=== PATIENT | female | born 1960 | race Caucasian/White ===

== ENCOUNTER 2023-10-17 08:31 | Emergency (ER) | payer BC, SELFPAY ==
--- NOTE | ~2023-10-17 | XR_ITS ---
EXAMINATION: XR KNEE, LEFT CLINICAL INFORMATION: Left knee pain COMPARISON: None available. TECHNIQUE: Four views of the left knee. FINDINGS: BONES: Bony structures are intact. There is no focal bone destruction or periosteal reaction seen. JOINTS: Alignment of joints is normal. SOFT TISSUE: Soft tissue is normal. No radiopaque foreign body or abnormal air collection is seen. XR/XR knee LT 3V IMPRESSION: 1. Normal x-rays of left knee. No fracture or dislocation or signs of osteomyelitis are found.
[2023-10-17 08:53] VITALS: BP 156/93; PULSE 78; RESP 16; TEMP 36.7; O2SAT 97; BMI 33.3
--- NOTE | 2023-10-17 11:30 | ED.GENADULT ---
[facility] - General Adult General Chief complaint: Extremity Injury, Lower Stated complaint: l knee pain Time Seen by Provider: 10/17/23 11:23 Source: patient Mode of arrival: ambulatory Limitations: no limitations History of Present Illness ED Provider: damon [facility] narrative: Patient is a 63-year-old female presenting emergency department with complaint of left knee pain since yesterday. States that she noted the pain after she was leaving the grocery store but denies any known injury or trauma. She denies any fall. States she took Tylenol and ibuprofen last night with little relief of pain. Unable to bear weight on left leg. Denies history of prior injuries or surgery to left knee but does report history of meniscus tear to right knee with surgical repair in the past. MD complaint: Left knee pain Onset (ago): hour(s) Severity: severe Quality: aching Pain Consistency: constant Relieving factors: rest Exacerbating factors: movement Associated symptoms: denies other symptoms Treatments prior to arrival: NSAID Related Data Previous Rx's ?Medication ?Instructions ?Recorded ibuprofen 600 mg tablet 600 mg PO Q6H PRN pain #20 tabs 10/17/23 lidocaine 5 % topical patch 1 patch topical DAILY #15 ea 10/17/23 oxycodone 5 mg tablet 5 mg PO Q8H PRN severe pain (scale 10/17/23 score 7-10) #6 tabs Allergies Allergy/AdvReac Type Severity Reaction Status Date / Time No Known Allergies Allergy Verified 10/17/23 08:54 Review of Systems Review of Systems: Yes all other systems are reviewed and are negative Constitutional: Constitutional: Reports as per [facility] Social History Social History Advance Directives: No Advance Directives Information Provided: Yes Do you have a plan to hurt others: No Plan Physical Exam ED Vital Signs: Vital Signs - 24 hr 10/17/23 08:53 Temperature 98.1 F Pulse Rate 78 Respiratory Rate 16 Blood Pressure 156/93 H Pulse Oximetry 97 Oxygen Delivery Method Room Air BMI result Body Mass Index 33.3 Vital signs have been reviewed and appear to be correct. Blood pressure elevated. Heart rate normal. Respiratory rate normal. Temperature normal. Oxygen saturation normal. Const General: cooperative, healthy appearing and no acute distress Orientation/consciousness: oriented to person, oriented to place, oriented to time and patient oriented x3 Limitations: no limitations HENMT Head: Yes normocephalic and Yes atraumatic Ears: external ears normal General nose exam: Normal external nose present Face and sinus: Yes face symmetric Mouth: oropharynx normal and moist mucous membranes Throat: Yes uvula midline Eyes Pupils: Equal, round and reactive pupils present Neck Neck: Yes normal visual inspection and Yes supple Resp Effort & Inspection: normal respiratory effort and able to speak in complete sentences Auscultation: clear to auscultation bilaterally Cardio Rate: regular rate Rhythm: regular rhythm Heart sounds: S1 normal heart sound present and S2 normal heart sound present GI Palpation (GI): Soft to palpation and nontender Auscultation: normoactive bowel sounds General: Yes no CVA tenderness Back/Spine/Pelvis Back: no CVA tenderness Skin General skin exam: elasticity normal and turgor normal Neuro General: oriented to person, oriented to place, oriented to time, patient oriented x3, moves all extremities, no focal motor deficits and CN's II-XI intact bilaterally Cranial nerves: Yes Equal, round and reactive pupils present Cognition (Neuro): normal cognition Extrem General: Yes full ROM, Yes no pedal edema and Yes no calf tenderness Left lower extremity: knee Details: normal to inspection, tenderness Location: of the medial joint line, normal ROM and knee ligament exam normal; no swelling Psych Mental Status: mental status grossly normal Affect: normal affect Thought process: Normal thought process present Medications Administered Discontinued Medications Generic Name Dose Route Start Last Admin Trade Name Freq PRN Reason Stop Dose Admin Oxycodone HCl 5 mg 10/17/23 12:22 10/17/23 12:34 Oxycodone Hcl Immed Release 5 Mg Tablet PO 10/17/23 12:23 5 mg ONCE ONE Administration Medical Decision Making Medical Decision Making [facility] Narrative: Patient is a 63-year-old female presenting emergency department with complaint of left knee pain since yesterday. On exam patient is awake, A+Ox3, VS WNL, afebrile, normal neurological exam without focal deficits, physical exam findings as above. Given reported symptoms and physical exam findings, initial differential includes left knee strain, sprain, ligamentous injury, meniscus tear. Unlikely fracture. X-ray notable for no acute fracture/dislocation. My interpretation is in agreement with the radiologist's interpretation. Results discussed with patient and all questions answered. Patient placed in knee immobilizer and provided with crutches and crutch teaching. Will refer patient to orthopedic for further evaluation and management of her symptoms. Advised patient to keep leg elevated while at rest, apply ice intermittently, use anti-inflammatory medication. Return precautions discussed. Patient verbalized understanding of and agreement with plan. Differential Diagnosis Differential Diagnoses: The differential diagnosis associated with the presentation includes As per MDM. Independent Interpretation I performed an independent interpretation of an: Plain X-Ray Interpretation: No acute fracture dislocation left knee Radiology Impression Discussion of test interpretation with radiology: I have reviewed the radiologist's reading. Radiologist Impression: XR/XR knee LT 3V IMPRESSION: 1. Normal x-rays of left knee. No fracture or dislocation or signs of osteomyelitis are found. External Record Review External record reviewed: Inpatient record, Office record and Outpatient record Discharge Plan Discharge Clinical Impression: Strain of left knee Patient Disposition: Home, Self-Care Instructions: Crutch Instructions (ED), Knee Pain (ED), Knee Immobilizer (ED) Additional Instructions: You have been evaluated in the emergency department today for left knee pain. Your evaluation did not find evidence of medical conditions requiring emergent intervention at this time. We have provided you with a knee immobilizer and crutches for you to use while your knee heals. Please rest, ice, and elevate your leg, and resume normal activities as tolerated. We recommend you take 600mg ibuprofen every 6 hours or 650mg Tylenol every 6 hours as needed for pain. If needed you can alternate these medications as they take 1 medication every 3 hours. For instance at noon take ibuprofen, then at 3:00 p.m. take Tylenol, then at 6:00 p.m. take ibuprofen. Please schedule an appointment for follow-up with your primary care provider this week. Return to the emergency department if you experience worsening pain, numbness, tingling, change of color in your leg, or any other concerning symptoms. Call the orthopedics office to schedule and appointment, they will not call you. Prescriptions: New ibuprofen 600 mg tablet 600 mg PO Q6H PRN (Reason: pain) Qty: 20 0RF lidocaine 5 % adhesive patch,medicated 1 patch topical DAILY Qty: 15 0RF Rx Instructions: leave on most painful area for up to 12 hrs oxycodone 5 mg tablet 5 mg PO Q8H PRN (Reason: severe pain (scale score 7-10)) Qty: 6 0RF Rx Instructions: Partial Fill upon patient request. Referrals: [facility] [place] [facility] [Provider Group] Print Language: Amharic
--- OUTSIDE RECORDS SUMMARY | 2023-10-17 11:41 | XMS_ITS | Continuity of Care Document ---
Author Organization [facility] Zaid Agustin lt Address [address] [place] [address]- Care Team Providers Care Assistant Merchandise Manager Name Role Phone Deion DE LA PAZ, Dian Houston Primary Care Physician [phone] Encounter [facility] [place] Date(s): 11/09/22 - 12/09/22 [facility] Adult [address] [place] [address]- Allergies, Adverse Reactions, Alerts Substance Reaction Severity Status Vicodin drowsy gi upset Active Immunizations Given and Recorded Vaccine Date Status Refusal Reason tetanus/diphtheria/pertussis, acel(Tdap) 05/05/22 Given tetanus/diphtheria/pertussis, acel(Tdap) 01/10/12 Given SARS-CoV-2 (COVID-19) mRNA-1273 vaccine 06/18/20 R ecorded SARS-CoV-2 (COVID-19) mRNA-1273 vaccine 05/21/20 R ecorded Typhoid Vaccine, Inactivated 01/10/12 Given Hepatitis A Vaccine (oldterm) 1 01/10/12 Given Poliovirus Vaccine, Inactivated 01/10/12 Given Pneumococcal Vaccine (oldterm) 11/28/08 Given tetanus-diphtheria toxoids (Td) 2 11/04/00 Given 1Admin Note: hep A #1 2Admin Note: historical data Medications lidocaine 5% topical film 1 patch, Topically, Daily, PRN Pain , Mild, for 30 days, remove after 12 hours, # 30 patch, 2 Refills, Acute 02/02/23 8:28:00 EDT, 11/04/22 8:28:00 EDT, Film, [facility], Partial fill upon patient request if the prescription is for a schedule... Start Date: 11/04/22 Stop Date: 02/02/23 Status: Ordered metFORMIN 500 mg oral tablet, extended release 1 tablet = 500 mg, By Mouth, Daily, # 90 tablet, 1 Refills, Maintenance, 08/14/22 18:05:00 EDT, ER Tablet, [facility], Partial fill upon patient request if the prescription is for a schedule II opioid drug., 158, cm, 05/05/22 7:... Start Date: 08/14/22 Status: Ordered NuLYTELY with Flavor Packs oral powder for reconstitution See Instructions, split prep method. drink one half the night before procedure at 5pm. drink secondhalf six hours prior to procedure., # 4,000 mL, 0 Refills, Maintenance, 11/14/22 17:00:00 EDT, [facility], test date, split prep method. drink... Start Date: 11/14/22 Status: Ordered pravastatin 20 mg oral tablet 20 mg, 1, tablet, By Mouth, Daily, replace crestor, # 30 tablet, Refills 1, Tot. Refills 1, Maintenance, 05/05/22 7:58:00 EST, Route to Pharmacy Electronically, [facility], Partial fill uponpatient request if the prescription is for a schedu... Start Date: 05/05/22 Status: Ordered Problem List Condition Confirmation Course Effective Dates Status Health Status Informant Cigarette smoker Confirmed Active History of pulmonary embolism Confirmed Active Hypercholesteremia ASCVD risk 6.3% as of 09/21/17 Confirmed Active Obese class I Confirmed Active Obesity Confirmed Active Colon polyps - 2019, 3 SSA, 1 tubular adenoma, colo due 2022 Confirmed Active Pulmonary nodule - CT due November 2013 1 Confirmed 11/19/12 Active Type II diabetes mellitus Confirmed Active Varicose veins Confirmed Active 13 mm nodule right lower lobe. Per Fleischner criteria, if the patient is at low risk for malignancy, no followup is recommended. If the patient is at high risk of malignancy, recommend CT of the chest in 12 months. Social History Social History Type Response Smoking Status Current every day lloyd andrade entered on: 01/24/18 Sex Patient Care team information Care Team Personnel Name: Deion DE LA PAZ, Dian Houston Position: S PCO Associate Professional Member Role: PCP Address: Address: [address] [place] [phone]- Care Team Related Persons Name: LUISA HUNT Address: home [address] [place] [address]
--- OUTSIDE RECORDS SUMMARY | 2023-10-17 11:41 | XMS_ITS | Continuity of Care Document ---
Author Organization [facility] ter Address [address] [place] [id number]- Care Team Providers Care Final Armature Tester Name Role Phone Gene Sesay MD Primary Care Physician Encounter [facility] [place] Date(s): 07/11/19 - 10/18/[address] [address]- [facility] Attending Physician: Stefano Chawla MD Admitting Physician: Stefano Chawla MD Allergies, Adverse Reactions, Alerts Substance Reaction Severity Status Vicodin gi upset Active Immunizations Given and Recorded Vaccine Date Status Refusal Reason Typhoid Vaccine, Inactivated 01/10/12 Given Hepatitis A Vaccine (oldterm) 1 01/10/12 Given tetanus/diphtheria/pertussis, acel(Tdap) 01/10/12 Given Poliovirus Vaccine, Inactivated 01/10/12 Given Pneumococcal Vaccine (oldterm) 11/28/08 Given tetanus-diphtheria toxoids (Td) 2 11/04/00 Given Not Given Vaccine Date Status Refusal Reason Influenza Virus Vaccine (oldterm) 06/15/19 Not Giv en Patient Refuses Influenza Virus Vaccine (oldterm) 06/08/19 Not Giv en Parent Or Guardian Refuses 1Admin Note: hep A #1 2Admin Note: historical data Medications ibuprofen 600 mg oral tablet 600 mg, 1, tablet, By Mouth, Every 6 hours, PRN, Take with food, # 20 tablet, Refills 0, Tot. Refills 0, Maintenance, for pain, 06/08/19 16:08:00 EST, Route to Pharmacy Electronically, [facility], 158, cm, 06/08/19 15:52:00 EST, Height, 79.2,... Start Date: 06/08/19 Status: Ordered NuLYTELY with Flavor Packs oral powder for reconstitution 240 mL, By Mouth, Every 10 minutes, # 4,000 mL, 0 Refills, Maintenance, 07/11/19 10:01:00 EDT, REC Powder, [facility], test date 02/22/19, 240 mL By Mouth Every 10 minutes, 158, cm, 06/15/19 10:34:00 EST, Height, 79.2, kg, 05/27/18 18:27:00 E... Start Date: 07/11/19 Status: Ordered Tennis elbow strap Tennis elbow strap, See Instructions, # 1 each, Refills 0, Tot. Refills 0, Maintenance, Use as directed on the right forearm DX: Lateral epicondylitis, 06/15/19 11:00:00 EST, Supply Start Date: 06/15/19 Status: Ordered Problem List Condition Effective Dates Status Health Status Inform ant Anxiety depression(Confirmed) 04/03/08 Active Arthritis of hand(Confirmed) Active Cigarette smoker(Confirmed) Active Fasting hyperglycemia(Confirmed) Active Hypercholesteremia ASCVD ris k 6.3% as of 09/21/17(Confirmed) Active Obesity(Confirmed) Active Pulmonary embolism(Confirmed) 1 Active Pulmonary nodule - CT due [place] 2013(Confirmed) 2 11/19/12 Active Travel vaccinations(Confirmed) Active Varicose veins(Confirmed) Active 1June 2006 23 mm nodule right lower lobe. Per Fleischner criteria, if the patient is at low risk for malignancy, no followup is recommended. If the patient is at high risk of malignancy, recommend CT of the chest in 12 months. Social History Social History Type Response Smoking Status Current every day lloyd andrade entered on: 01/24/18 Sex
--- OUTSIDE RECORDS SUMMARY | 2023-10-17 11:41 | XMS_ITS | Continuity of Care Document ---
Author Organization [facility] Zaid Agustin lt Address [address] [place] [address]- Care Team Providers Care Tierce Filler Name Role Phone Deion DE LA PAZ, Dian Houston Primary Care Physician Encounter [facility] [place] Date(s): 11/04/22 - 11/11/[facility] [address] [place] [address]- Encounter Diagnosis Annual physical exam(Discharge Diagnosis) - 11/04/22 Hypercholesteremia ASCVD risk 6.3% as of 09/21/17(Discharge Diagnosis) - 11/04/22 Type II diabetes mellitus(Discharge Diagnosis) - 11/04/22 Attending Physician: Deion DE LA PAZ, Dian Houston Referring Physician: Álvaro Dee MD Allergies, Adverse Reactions, Alerts Substance Reaction [...] 02/02/23 8:28:00 EDT, 11/04/22 8:28:00 EDT, Film, [facility], Partial fill upon patient request if the prescription is for a schedule... Start Date: 11/04/22 Stop Date: 02/02/23 Status: Ordered metFORMIN 500 mg oral tablet, extended release 1 tablet = 500 mg, By Mouth, Daily, # 90 tablet, 1 Refills, Maintenance, 08/14/22 18:05:00 EDT, ER Tablet, [facility], Partial fill upon patient request if the prescription is for a schedule II opioid drug., 158, cm, 05/05/22 7:... Start Date: 08/14/22 Status: Ordered NuLYTELY with Flavor Packs oral powder for reconstitution See Instructions, split prep method. drink one half the night before procedure at 5pm. drink secondhalf six hours prior to procedure., # 4,000 mL, 0 Refills, Maintenance, 11/14/22 17:00:00 EDT, [facility], test date, split prep method. drink... Start Date: 11/14/22 Status: Ordered pravastatin 20 mg oral tablet 20 mg, 1, tablet, By Mouth, Daily, replace crestor, # 30 tablet, Refills 1, Tot. Refills 1, Maintenance, 05/05/22 7:58:00 EST, Route to Pharmacy Electronically, [facility], Partial fill uponpatient request [...] CT of the chest in 12 months. Diagnosis Diagnosis Type Effective Dates Health Status Clinical Service Informant Annual physical exam Discharge Diagnosis 11/04/22 Hypercholesteremia ASCVD risk 6.3% as of 09/21/17 Discharge Diagnosis 11/04/22 Type II diabetes mellitus Discharge Diagnosis 11/04/22 Vital Signs Most recent to oldest [Reference Range]: 1 Height 158 cm (11/04/22 8:01 AM) Weight 81.3 kg (11/04/22 8:01 AM) Oxygen Saturation [94-100 %] 97 % (11/04/22 8:01 AM) Pulse Rate [55-90 bpm] 69 bpm (11/04/22 8:01 AM) Body Mass Index [18.5-24.99 kg/m2] 32.57 kg/m2 *>HHI* (11/04/22 8:01 AM) Blood Pressure [90-138/55-84 mm Hg] 123/ 70mm Hg (11/04/22 8:01 AM) Blood pressure sites Arm, right (11/04/22 8:01 AM) Weight Obtained Via Standing scale (11/04/22 8:01 AM) Social History Social History Type Response Smoking Status Current every day lloyd andrade entered on: 01/24/18 Sex Note * Latrice Good: PERFORM, SIGN, VERIFY Event Display: Patient Education/Instruction Authored Date: [id number] [facility] *BMP So Zaid Matthews Clinical Summary Name LUIS HUNT Age 62 Years 1960 PCP Dian Albarran NP PCP Visit Date 11/04/2022 07:52:00 Additional Instructions: Scheduled Appointments?? Future Appointments ?*[facility] ?Phone:??--?Fax:??-- ?Appt. Date:??11/04/2022?3:00 PM ?Scheduled Provider:??Erlinda Calderon [facility] ?Phone:??--?Fax:??-- ?Appt. Date:??11/15/2022?10:00 AM ?Scheduled Provider:??Jose Haider DO Follow-Up Instructions ?? With: Address: When: Deion DE LA PAZ, Dian Houston [address] [place] [id number] In 6 months Diagnosis Encounter for general adult medical examination without abnormal findings; Pure hypercholesterolemia, unspecified; Type 2 diabetes mellitus without complications Medications: Please continue your medications until treatment is completed or stopped by your provider. Discuss any questions related to medications with your provider. New Medications [facility], [address], [place] [id number], [phone] Lidocaine Topical (lidocaine 5% topical film) 1 patch(es) Topically Daily as needed Pain , Mild for30 Days. remove after 12 hours. Refills: 2. Next Dose: Medications to Continue with No Changes These medications were not printed or sent to your pharmacy Metformin (metFORMIN 500 mg oral tablet, extended release) 1 tab(s) Oral Daily. Refills: 1. Next Dose: PEG Electrolyte Solution (NuLYTELY with Flavor Packs oral powder for reconstitution) split prep method. drink one half the night before procedure at 5pm. drink second half six hours prior to procedure.. Refills: 0. Next Dose: Pravastatin (pravastatin 20 mg oral tablet) 1 tab(s) Oral Daily. replace crestor. Refills: 1. Next Dose: No Longer Take the Following Medications Rosuvastatin (rosuvastatin 5 mg oral tablet) 1 tab(s) Oral Daily at Bedtime. Refills: 2. Allergy Info:?? Vicodin Medications Given This Visit Future Orders ?Comprehensive Metabolic Panel? Order Date:11/04/22?- Complete on or after?11/04/22 ?Lipid Panel? Order Date:11/04/22?- Complete on or after?11/04/22 ?Hemoglobin A1C (Monitoring)? Order Date:11/04/22?- Complete on or after?11/04/22 ?Microalbumin Urine? Order Date:11/04/22?- Complete on or after?11/04/22 Vital Signs Height 158 cm Weight 81.3 kg BMI 32.57 kg/m2 Blood Pressure 123 mm Hg/70 mm Hg Temperature Pulse Rate 69 bpm Respiratory Rate 02 Sat Mode of Delivery 97 %/ You can now view a summary of your hospital visit from the comfort of your home through a free online portal called [employer]. [employer] is a website that allows you to securely view your medical information including discharge summary, medications and follow-up visits. ??You can alsosend a secure electronic message to your doctor???s office to request appointments, renew medications or just ask a question. You can enroll at [email or web address] or register during your next office visit. Disclaimer:?? The information provided is of a general nature and is intended to be used in conjunction with the recommendations and advice of your health care practitioner. ??Every effort has been made to ensure that the information provided is accurate and complete at the time it is provided to you however, as your needs change, or, as new ??information becomes available, different or additional instructions may be required. If you have questions, please consult with your primary care provider or pharmacist, as appropriate. ??This information is not intended to serve as substitution for assessment and evaluation by a qualified health care provider. If you do not have a primary care provider, you may find a [facility] provider by calling [facility] at [phone]. For information about the plan of care including goals and instructions for your diagnosis, please see the patient education orders section of this document. Patient Education Materials?? The content of this educational material or handout may have been modified, supplemented, or adapted from its original content and format to support your individualized medical care. Patient Care team information Care Team Personnel Name: Deion DE LA PAZ, Dian Houston Position: [facility] PCO Associate Professional Member Role: PCP Address: Address: [address] [place] [address]- Care Team Related Persons Name: LUISA HUNT Address: home [address] [place] [address]
--- OUTSIDE RECORDS SUMMARY | 2023-10-17 11:41 | XMS_ITS | Continuity of Care Document ---
Author Organization [facility] Zaid Agustin lt Address [address] [place] [address]- Care Team Providers Care Log Sorter Name Role Phone Deion DE LA PAZ, Dian Houston Primary Care Physician [phone] Encounter [facility] Date(s): 06/23/23 - 07/23/23 [facility] Adult [address] [place] [address]- Allergies, Adverse Reactions, Alerts Substance Reaction Severity [...] A #1 2Admin Note: historical data Medications Ozempic 2 mg/3 mL (0.25 mg or 0.5 mg dose) subcutaneous solution See Instructions, INJECT 0.25MG UNDER THE SKIN EVERY WEEK. ROTATE INJECTION SITES, # 3 mL, 0 Refills, Maintenance, 06/24/23 12:52:00 EST, [facility], 154.9, cm, 05/09/23 9:03:00 EST, Height,81.1, kg, 11/15/22 9:33:00 EDT, Dry Weight Start Date: 06/24/23 Status: Ordered pravastatin 20 mg oral tablet 20 mg, 1, tablet, By Mouth, Daily, replace crestor, # 30 tablet, Refills 1, Tot. Refills 1, Maintenance, 05/05/22 7:58:00 EST, Route to Pharmacy Electronically, [facility], Partial fill uponpatient request if the prescription is for a schedu... Start Date: 05/05/22 Status: Ordered Problem List Condition Confirmation Course Effective Dates Status Health Status Informant Cigarette smoker Confirmed Active History of pulmonary embolism Confirmed Active Hypercholesteremia ASCVD risk 6.3% as of 09/21/17 Confirmed Active Obesity Confirmed Active Colon polyps - 2019, 3 SSA, 1 tubular adenoma, colo due 2022 Confirmed Active Pulmonary nodule - CT due November 2013 1 Confirmed 11/19/12 Active Severe obesity (BMI 35.0-39.9) with comorbidity Confirmed Active Type II diabetes mellitus Confirmed Active Varicose veins Confirmed Active 13 mm nodule right lower lobe. Per Fleischner criteria, if the patient is at low risk for malignancy, no followup is recommended. If the patient is at high risk of malignancy, recommend CT of the chest in 12 months. Social History Social History Type Response Smoking Status Current every day lloyd [email or web address] entered on: 01/24/18 Sex Patient Care team information Care Team Personnel Name: Dian Albarran NP Position: S PCO Associate Professional Member Role: PCP Address: Address: [address] [place] [address]- Care Team Related Persons Name: LUISA HUNT Address: home [address] [place] [id number]
--- OUTSIDE RECORDS SUMMARY | 2023-10-17 11:41 | XMS_ITS | Continuity of Care Document ---
Author Organization [facility] Address [address] [place] [address]- Care Team Providers Care Behavioral Services Tech Name Role Phone Gene Sesay MD Primary Care Physician [phone] Encounter 03/19/21 - 03/26/21 [facility] [address], [address] [place] [address]- Attending Physician: Gene Sesay MD Admitting Physician: Gene Sesay MD Referring Physician: Gnee Sesay MD Allergies, Adverse Reactions, Alerts Substance Reaction Severity Status Vicodin drowsy gi upset Active Immunizations Given and Recorded Vaccine Date Status Refusal Reason SARS-CoV-2 (COVID-19) mRNA-1273 vaccine 06/18/20 R ecorded [...] A #1 2Admin Note: historical data Medications Readi-Cat 2 2.1% oral suspension See Instructions, 1 bottle 6 hours prior to appointment, 1 bottle 90 minutes prior to appointment, # 900 mL, 0 Refills, Maintenance, 01/08/21 13:22:00 EDT, [facility], Partial fill upon patient request if the prescription is for a schedule II... Start Date: 01/08/21 Status: Ordered Tennis elbow strap Tennis elbow [...] 6.3% as of 09/21/17(Confirmed) Active Obesity(Confirmed) Active Colon polyps - 2019, 3 SSA, 1 tubular adenoma, colo due 2022(Confirmed) Active Pulmonary embolism(Confirmed) 1 Active Pulmonary nodule [...]
--- OUTSIDE RECORDS SUMMARY | 2023-10-17 11:41 | XMS_ITS | Continuity of Care Document ---
Author Organization [facility] Zaid Agustin lt Address [address] [place] [address]- Care Team Providers Care Gas Worker Name Role Phone Lázaro VILLARREAL, Gene Hi Primary Care Physician [facility] Date(s): 01/08/21 - 02/07/21 [facility] Adult [address] [place] [address]- Attending Physician: Admtr, Ar8 Allergies, Adverse Reactions, Alerts Substance Reaction Severity [...] mL, 0 Refills, Maintenance, 01/08/21 13:22:00 EDT, [facility], Partial fill [...] CT of the chest in 12 months. Vital Signs Most recent to oldest [Reference Range]: 1 Height 151.00 cm (09/18/08 11:51 AM) Weight 71.000 kg (09/18/08 11:51 AM) Pulse Rate [55-90 bpm] 60 bpm (09/18/08 11:51 AM) Body Mass Index [18.50-24.99] 31.14 *>HHI* (09/18/08 11:51 AM) Blood Pressure [90-138/55-84 mm Hg] 112/ 78mm Hg (09/18/08 11:51 AM) Respiratory Rate [16-30 br/min] 12 br/mi n *L* (09/18/08 11:51 AM) Blood pressure sites Arm, left (09/18/08 11:51 AM) Social History Social History Type Response Smoking Status Current every day lloyd andrade entered on: 01/24/18 Sex
--- OUTSIDE RECORDS SUMMARY | 2023-10-17 11:41 | XMS_ITS | Continuity of Care Document ---
Author Organization [facility] Dewey Mar Agustin lt Address [address] [place] [address]- Care Team Providers Care Flare Man Name Role Phone Deion DE LA PAZ, Dian Houston Primary Care Physician Encounter [facility] Date(s): 05/05/22 - 05/12/22 [facility] Adult [address] [place] [address]- Encounter Diagnosis Type II diabetes mellitus(Discharge Diagnosis) - 05/05/22 Hypercholesteremia ASCVD risk 6.3% as of 09/21/17(Discharge Diagnosis) - 05/05/22 Cigarette smoker(Discharge Diagnosis) - 05/05/22 Attending Physician: Deion DE LA PAZ, Dian [...] A #1 2Admin Note: historical data Medications metFORMIN 500 mg oral tablet, extended release 1 tablet = 500 mg, By Mouth, Daily, # 90 tablet, 3 Refills, Maintenance, 10/02/21 10:05:00 EDT, ER Tablet, [facility], Partial fill upon patient request if the prescription is for a schedule II opioid drug., 158, cm, 09/10/21 9:... Start Date: 10/02/21 Status: Ordered pravastatin 20 mg oral tablet 20 mg, 1, tablet, By Mouth, Daily, replace crestor, # 30 tablet, Refills 1, Tot. Refills 1, Maintenance, 05/05/22 7:58:00 EST, Route to Pharmacy Electronically, [facility], Partial fill uponpatient request [...] Effective Dates Health Status Clinical Service Informant Type II diabetes mellitus Discharge Diagnosis 05/05/22 Hypercholesteremia ASCVD risk 6.3% as of 09/21/17 Discharge Diagnosis 05/05/22 Cigarette smoker Discharge Diagnosis 05/05/22 Vital Signs Most recent to oldest [Reference Range]: 1 Height 158 cm (05/05/22 7:49 AM) Weight 80.9 kg (05/05/22 7:49 AM) Oxygen Saturation [94-100 %] 99 % (05/05/22 7:49 AM) Pulse Rate [55-90 bpm] 77 bpm (05/05/22 7:49 AM) Body Mass Index [18.5-24.99 kg/m2] 32.41 kg/m2 *>HHI* (05/05/22 7:49 AM) Blood Pressure [90-138/55-84 mm Hg] 127/ 80mm Hg (05/05/22 7:49 AM) Blood pressure sites Arm, left (05/05/22 7:49 AM) Weight Obtained Via Standing scale (05/05/22 7:49 AM) Social History Social History Type Response Smoking Status Current every day lloyd andrade entered on: 01/24/18 Sex Note * Latrice Good: PERFORM, SIGN, VERIFY Event Display: Patient Education/Instruction Authored Date: [id number] [facility] *[facility] Clinical Summary Name LUIS HUNT Age 62 Years 1960 PCP Deion DE LA PAZ, Dian Houston PCP Visit Date 05/05/2022 07:43:00 Additional Instructions: Scheduled Appointments?? Future Appointments ?[facility] ?[address]??[place],??[place],??[address] ?Phone:??[phone]?Fax:??-- ?Appt. Date:??05/12/2022?11:15 AM ?Scheduled Provider:??[facility] M[facility] 1 Follow-Up Instructions ?? With: Address: When: Deion DE LA PAZ, Dian Houston [address] [facility] Adult Medicine [place], [place] [id number] In 6 months Comments: cpe Diagnosis Type 2 diabetes mellitus without complications; Pure hypercholesterolemia, unspecified Medications: Please continue your medications until treatment is completed or stopped by your provider. Discuss any questions related to medications with your provider. New Medications [facility], [address] [place], [place] [id number], [phone] Pravastatin (pravastatin 20 mg oral tablet) 1 tab(s) Oral Daily. replace crestor. Refills: 1. Next Dose: Medications to Continue with No Changes These medications were not printed or sent to your pharmacy Metformin (metFORMIN 500 mg oral tablet, extended release) 1 tab(s) Oral Daily. Refills: 3. Next Dose: No Longer Take the Following Medications Rosuvastatin (Crestor 5 mg oral tablet) 1 tab(s) Oral Daily. take at bedtime. Refills: 2. Allergy Info:?? Vicodin Medications Given This Visit Medication Dose Route tetanus/diphtheria/pertussis, acel(Tdap) ((Tdap) diphtheria/pertussis, acel/tetanus vacc) 0.5 mL Intramuscular Future Orders ?Hemoglobin A1C (Monitoring)? Order Date:05/05/22?- Complete on or after?05/05/22 ?Comprehensive Metabolic Panel? Order Date:05/05/22?- Complete on or after?05/05/22 Vital Signs Height 158 cm Weight 80.9 kg BMI 32.41 kg/m2 Blood Pressure 127 mm Hg/80 mm Hg Temperature Pulse Rate 77 bpm Respiratory Rate 02 Sat Mode of Delivery 99 %/ You can now view a summary of your hospital visit from the comfort of your home through a free online portal called [employer]. [employer] is a website that allows you to securely view your medical information including discharge summary, medications and follow-up visits. ??You can alsosend a secure electronic message to your doctor???s office to request appointments, renew medications or just ask a question. You can enroll at [email or web address] or register during your next [...] primary care provider, you may find a [facility] provider by calling [facility] at [phone]. For information about the plan of care [...] Deion DE LA PAZ, Dian Houston Position: [facility] PCO Associate Professional Member Role: PCP Address: Address: [address] [place] [address]- Care Team Related Persons Name: LUISA HUNT Address: home [address] [place] [phone]
--- OUTSIDE RECORDS SUMMARY | 2023-10-17 11:41 | XMS_ITS | Continuity of Care Document ---
Author Organization [facility] Zaid Augstin lt Address [address] [place] [address]- Care Team Providers Care Rattling Machine Tender Name Role Phone Gene Sesay MD Primary Care Physician [phone] Encounter [facility] Date(s): 01/08/21 - 01/15/21 [facility] Adult [address] [place] [address]- Encounter Diagnosis Right upper quadrant pain(Discharge Diagnosis) - 01/08/21 Attending Physician: Gene Sesay MD Allergies, Adverse Reactions, Alerts Substance [...] mL, 0 Refills, Maintenance, 01/08/21 13:22:00 EDT, [facility], Partial fill upon [...] Diagnosis Diagnosis Type Effective Dates Health Status Cl inical Service Informant Right upper quadrant pain Discharge Diagnosis 01/08/21 Vital Signs Most recent to oldest [Reference Range]: 1 Height 158 cm (01/08/21 12:02 PM) Weight 83.1 kg (01/08/21 12:02 PM) Oxygen Saturation [94-100 %] 98 % (01/08/21 12:02 PM) Pulse Rate [55-90 bpm] 78 bpm (01/08/21 12:02 PM) Body Mass Index [18.5-24.99] 33.29 *>HHI* (01/08/21 12:02 PM) Blood Pressure [90-138/55-84 mm Hg] 114/ 74mm Hg (01/08/21 12:02 PM) Temperature [96.8-100.4 DegF] 98.3 DegF (01/08/21 12:02 PM) Mode of Delivery (Oxygen) Room air (01/08/21 12:02 PM) Blood pressure sites Arm, left (01/08/21 12:02 PM) Temperature Route Oral (01/08/21 12:02 PM) Weight Obtained Via Standing scale (01/08/21 12:02 PM) Social History Social History Type Response Smoking Status Current every day lloyd andrade entered on: 01/24/18 Sex
--- OUTSIDE RECORDS SUMMARY | 2023-10-17 11:41 | XMS_ITS | Continuity of Care Document ---
Author Organization [facility] Zaid Agustin lt Address [address] [place] [address]- Care Team Providers Care Authors Motivational Name Role Phone Gene Sesay MD Primary Care Physician [phone] En[place] [facility] Date(s): 12/27/19 - 01/03/20 [facility] Adult [address] [place] [address]- [facility] Encounter Diagnosis Right lateral epicondylitis(Discharge Diagnosis) - 12/27/19 Attending Physician: Gene Sesay MD Allergies, Adverse [...] 6 hours, PRN, Take with food, # 60 tablet, Refills 1, Tot. Refills 1, Maintenance, for pain, 12/27/19 15:17:00 EDT, Route to Pharmacy Electronically, [facility], 158, cm, 12/27/19 13:56:00 EDT, Height, 79.2,... Start Date: 12/27/19 Status: Ordered NuLYTELY with Flavor Packs oral [...] Effective Dates Health Status Clinical Service Informant Right lateral epicondylitis Discharge Diagnosis 12/27/19 Vital Signs Most recent to oldest [Reference Range]: 1 Height 158 cm (12/27/19 1:56 PM) Weight 79.5 kg (12/27/19 1:56 PM) Body Mass Index [18.5-24.99] 31.85 *>HHI* (12/27/19 1:56 PM) Weight Obtained Via Standing scale (12/27/19 1:56 PM) Social History Social History Type Response Smoking Status Current every day lloyd andrade entered on: 01/24/18 Sex
--- OUTSIDE RECORDS SUMMARY | 2023-10-17 11:41 | XMS_ITS | Continuity of Care Document ---
Author Organization [facility] Address [address] [place] [address]- Care Team Providers Care It Solutions Sales Consultant Name Role Phone Deion DE LA PAZ, Dian Houston Primary Care Physician [place] [facility] Date(s): 10/08/22 - 12/23/[address] [address]- Encounter Diagnosis Pain in left shoulder(Final) - Discharge Disposition: A-D/C Home Attending Physician: Dian Albarran NP Admitting Physician: Deion DE LA PAZ, Dian Houston Referring Physician: Liyah Tan NP Allergies, Adverse Reactions, Alerts Substance Reaction Severity [...] Refills, Maintenance, 08/14/22 18:05:00 EDT, ER Tablet, [facility], Partial fill upon patient request if the prescription is for a schedule II opioid drug., 158, cm, 05/05/22 7:... Start Date: 08/14/22 Status: Ordered NuLYTELY with Flavor Packs oral powder for reconstitution See Instructions, split prep method. drink one half the night before procedure at 5pm. drink secondhalf six hours prior to procedure., # 4,000 mL, 0 Refills, Maintenance, 11/14/22 17:00:00 EDT, [facility], test date, split prep method. drink... Start Date: 11/14/22 Status: Ordered pravastatin 20 mg oral tablet 20 mg, 1, tablet, By Mouth, Daily, replace crestor, # 30 tablet, Refills 1, Tot. Refills 1, Maintenance, 05/05/22 7:58:00 EST, Route to Pharmacy Electronically, [facility] # [facility], Partial fill uponpatient request [...] Team Personnel Name: Dian Albarran NP Position: [facility] PCO Associate Professional Member Role: PCP Address: Address: [address] [place] [address]- Care Team Related Persons Name: LUISA HUNT Address: home [address] [place] [address]
--- OUTSIDE RECORDS SUMMARY | 2023-10-17 11:41 | XMS_ITS | Continuity of Care Document ---
Author Organization [facility] Zaid Agustin lt Address [address] [place] [address]- Care Team Providers Care Rehab Manager Name Role Phone Deion DE LA PAZ, Dian Houston Primary Care Physician Encounter [facility] Date(s): 09/28/22 - 10/28/22 [facility] Adult [address] [place] [address]- Allergies, Adverse Reactions, Alerts Substance Reaction Severity [...] Refills, Maintenance, 08/14/22 18:05:00 EDT, ER Tablet, [facility], Partial fill upon patient request [...] mL, 0 Refills, Maintenance, 11/14/22 17:00:00 EDT, [facility], test date, split prep method. drink... Start Date: 11/14/22 Status: Ordered pravastatin 20 mg oral tablet 20 mg, 1, tablet, By Mouth, Daily, replace crestor, # 30 tablet, Refills 1, Tot. Refills 1, Maintenance, 05/05/22 7:58:00 EST, Route to Pharmacy Electronically, [facility], Partial fill uponpatient request if the prescription is for a schedu... Start Date: 05/05/22 Status: Ordered rosuvastatin 5 mg oral tablet 1 tablet, By Mouth, Daily at bedtime, # 90 tablet, 2 Refills, Maintenance, 07/08/22 10:42:00 EDT, [facility], 158, cm, 05/05/22 7:49:00 EST, Height, 81.2, kg, 07/18/20 8:16:00 EDT, Dry Weight Start Date: 07/08/22 Status: Ordered Problem List Condition Confirmation Course [...] Team Personnel Name: Dian Albarran NP Position: [facility] PCO Associate Professional Member Role: PCP Address: Address: [address] [place] [address]- Care Team Related Persons Name: LUISA HUNT Address: home [address] [place] [address]
--- OUTSIDE RECORDS SUMMARY | 2023-10-17 11:41 | XMS_ITS | Continuity of Care Document ---
Author Organization [facility] Zaid Agustin lt Address [address] [place] [address]- Care Team Providers Care Bench Chemist Name Role Phone Lázaro VILLARREAL, Gene Hi Primary Care Physician [facility]counter [facility] Date(s): 12/26/20 - 01/25/21 [facility] Adult [address] [place] [address]- Allergies, Adverse Reactions, Alerts Substance Reaction Severity [...] mL, 0 Refills, Maintenance, 01/08/21 13:22:00 EDT, [facility], Partial fill upon [...]
--- OUTSIDE RECORDS SUMMARY | 2023-10-17 11:41 | XMS_ITS | Continuity of Care Document ---
Author Organization [facility] Zaid Agustin lt Address [address] [place] [address]- Care Team Providers Care Billing Department Supervisor Name Role Phone Deion DE LA PAZ, Dian Houston Primary Care Physician [place] [facility] Date(s): 09/17/22 - 10/17/22 [facility] Adult [address] [place] [address]- Attending Physician: Admtr, Ar8 Allergies, Adverse Reactions, [...] Refills, Maintenance, 08/14/22 18:05:00 EDT, ER Tablet, [facility], Partial fill upon patient request if the prescription is for a schedule II opioid drug., 158, cm, 05/05/22 7:... Start Date: 08/14/22 Status: Ordered NuLYTELY with Flavor Packs oral powder for reconstitution See Instructions, split prep method. drink one half the night before procedure at 5pm. drink secondhalf six hours prior to procedure., # 4,000 mL, 0 Refills, Maintenance, 11/14/22 17:00:00 EDT, [facility], test date, split prep method. drink... Start Date: 11/14/22 Status: Ordered pravastatin 20 mg oral tablet 20 mg, 1, tablet, By Mouth, Daily, replace crestor, # 30 tablet, Refills 1, Tot. Refills 1, Maintenance, 05/05/22 7:58:00 EST, Route to Pharmacy Electronically, [facility], Partial fill uponpatient [...] day lloyd andrade entered on: 01/24/18 Sex Cardiology * Flakita Goyla: PERFORM Event Display: Cardiovascular Results Scanned Authored Date: [id number] Laboratory * Flakita Goyal: PERFORM Event Display: Laboratory Results Scanned Authored Date: [id number] Hospital Progress note * Cecilai Encarnacion: PERFORM, SIGN, VERIFY Event Display: Progress Note Hospital Authored Date: [id number] Patient: LUIS HUNT Age: 55 years Sex: Female : 1960 Associated Diagnoses: None Author: Cecilia Encarnacion Findings Evaluation Nursing Identify Primary Learner___Patient Language___English ZONE Diagnosis____neuro surgery [ost op instructions Patient education on the importance of: Call to obtain appointment with PCP as soon as arrival home (provide phone #'s if needed) with _100 % teach back. Medications name, dose, frequency, and side effects with ___100 % teach back. Interventions to do everyday while at home (Blue Zone) with __90 % teach back. Signs + symptoms to call MD (Yellow and Red Zone) with __90 % teach back.. * Cecilia Encarnacion: PERFORM, SIGN, VERIFY Event Display: Progress Note Hospital Authored Date: Patient: LUIS HUNT Age: 55 years Sex: Female : 1960 Associated Diagnoses: None Author: Cecilia Encarnacion Findings Narrative/Incidental laying in bed eyes closed but easliy arousable. IV access removed IV site clean. Reviewed discharge instructions regarding recent neuro surgery discharge instructions. Emphasized to have someone look at incision daily and if any separation of incision or swelling seen to contact neuro surgeons office immediately . Have someone stand by when shoering for the first few times. Reiviewed new prescriptions and side effects. Reviewed depart medication list and when to take next scheduled medications. Gave prescription to patient prior to leaving.Answered all questions and teach back completed. Patient home with . . Radiology * Event Display: Radiology Result Scanned Authored Date: * Heaven Riggs: PERFORM Event Display: Radiology Results Scanned Authored Date: * Flakita Goyal: PERFORM Event Display: Radiology Results Scanned Authored Date: [id number] Note * Flakita Goyal.: PERFORM Event Display: Discharge/Transfer Note Hospital Authored Date: Patient Care team information Care Team Personnel Name: Deion DE LA PAZ, Dian Houston Position: [facility] PCO Associate Professional Member Role: PCP Address: Address: [address] [place] [address]- Care Team Related Persons Name: LUISA HUNT Address: home [address] [place] [address]
--- OUTSIDE RECORDS SUMMARY | 2023-10-17 11:41 | XMS_ITS | Continuity of Care Document ---
Author Organization [facility] Zaid Agustin lt Address [address] [place] [address]- Care Team Providers Care Inner Tube Cutter Name Role Phone Deion DE LA PAZ, Dian Houston Primary Care Physician [facility] Date(s): 05/09/23 - 06/08/23 [facility] Adult [address] [place] [address]- Allergies, Adverse Reactions, Alerts Substance Reaction Severity [...] 2Admin Note: historical data Medications Ozempic 2 mg/1.5 mL (0.25 mg or 0.5 mg dose) subcutaneous solution = 0.25 mg, Subcutaneous Injection, Every week, rotate injection sites dx: Type II diabetes, # 3 mL,0 Refills, Maintenance, 05/09/23 9:11:00 EST, Solution, [facility], Partial fill upon patient request if the prescription is for a schedule... Start Date: 05/09/23 Status: Ordered pravastatin 20 mg oral tablet 20 mg, 1, tablet, By Mouth, Daily, replace crestor, # 30 tablet, Refills 1, Tot. Refills 1, Maintenance, 05/05/22 7:58:00 EST, Route to Pharmacy Electronically, [facility], Partial fill uponpatient request [...] Team Personnel Name: Dian Albarran NP Position: [facility] PCO Associate Professional Member Role: PCP Address: Address: [address] [place] [address]- Care Team Related Persons Name: LUISA HUNT Address: home [address] [place] [address]
--- OUTSIDE RECORDS SUMMARY | 2023-10-17 11:41 | XMS_ITS | Continuity of Care Document ---
Author Organization [facility] Address [address] [address]- Care Team Providers Care Aircraft Ordnance Technician Name Role Phone Deion DE LA PAZ, Dian Houston Primary Care Physician [phone] [place] [facility] [place] 08/09/22 - 09/08/22 [facility] [address] [place] [id number] Allergies, Adverse Reactions, Alerts Substance Reaction Severity [...] Refills, Maintenance, 08/14/22 18:05:00 EDT, [facility] Partial fill upon patient request if the prescription is for a schedule II opioid drug., 158, cm, 05/05/22 7:... Start Date: 08/14/22 Status: Ordered NuLYTELY with Flavor Packs oral powder for reconstitution See Instructions, split prep method. drink one half the night before procedure at 5pm. drink secondhalf six hours prior to procedure., # 4,000 mL, 0 Refills, Maintenance, 11/14/22 17:00:00 EDT, [facility], test date, split prep method. drink... Start Date: 11/14/22 Status: Ordered pravastatin 20 mg oral tablet 20 mg, 1, tablet, By Mouth, Daily, replace crestor, # 30 tablet, Refills 1, Tot. Refills 1, Maintenance, 05/05/22 7:58:00 EST, Route to Pharmacy Electronically, [facility], Partial fill uponpatient request [...] Associate Professional Member Role: PCP Address: Address: [address] [place] [address] [place] [address]- Care Team Related Persons Name: LUISA HUNT Address: home [address] [place] [address]
--- OUTSIDE RECORDS SUMMARY | 2023-10-17 11:41 | XMS_ITS | Continuity of Care Document ---
Author Organization [facility] Dewey Mar Agustin lt Address [address] [place] [address]- Care Team Providers Care Browning Processor Name Role Phone Gene Sesay MD Primary Care Physician [facility] Date(s): 06/15/19 - 06/22/19 [facility] Adult [address] [place] [address]- [facility] Encounter Diagnosis Lateral epicondylitis of elbow(Discharge Diagnosis) - 06/15/19 Attending Physician: Gene Sesay MD Allergies, Adverse [...] mL, By Mouth, Every 10 minutes, # 1 each, 0 Refills, Maintenance, 02/09/19 9:33:58 EDT, REC Powder, test date 02/22/19, 240 mL By Mouth Every 10 minutes Start Date: 02/09/19 Status: Ordered Tennis elbow strap Tennis elbow [...] Effective Dates Health Status Clinical Service Informant Lateral epicondylitis of elbow Discharge Diagnosis 06/15/19 Vital Signs Most recent to oldest [Reference Range]: 1 Height 158 cm (06/15/19 10:34 AM) Weight 81.0 kg (06/15/19 10:34 AM) Oxygen Saturation [94-100 %] 98 % (06/15/19 10:34 AM) Pulse Rate [55-90 bpm] 84 bpm (06/15/19 10:34 AM) Body Mass Index [18.5-24.99] 32.45 *>HHI* (06/15/19 10:34 AM) Blood Pressure [90-138/55-84 mm Hg] 132/ 70mm Hg (06/15/19 10:34 AM) Temperature [96.8-100.4 DegF] 98.4 DegF (06/15/19 10:34 AM) Mode of Delivery (Oxygen) Room air (06/15/19 10:34 AM) Blood pressure sites Arm, left (06/15/19 10:34 AM) Temperature Route Oral (06/15/19 10:34 AM) Weight Obtained Via Standing scale (06/15/19 10:34 AM) Social History Social History Type Response Smoking Status Current every day lloyd andrade entered on: 01/24/18 Sex
--- OUTSIDE RECORDS SUMMARY | 2023-10-17 11:41 | XMS_ITS | Continuity of Care Document ---
Author Organization [facility] Zaid Agustin lt Address [address] [place] [address]- Care Team Providers Care Apartment Hotel Manager Name Role Phone Deion DE LA PAZ, Dian Houston Primary Care Physician [phone] Encounter [facility] Date(s): 09/10/21 - 10/10/21 [facility] Adult [address] [place] [address]- Attending Physician: Admtr, Ar8 Allergies, Adverse Reactions, [...] A #1 2Admin Note: historical data Medications Crestor 5 mg oral tablet 1 tablet = 5 mg, By Mouth, Daily, take at bedtime, # 90 tablet, 2 Refills, Maintenance, 10/02/21 10:05:00 EDT, [facility], Partial fill upon patient request if the prescriptionis for a schedule II opioid drug., 158, cm, ... Start Date: 10/02/21 Status: Ordered metFORMIN 500 mg oral tablet, extended release 1 tablet = 500 mg, By Mouth, Daily, # 90 tablet, 3 Refills, Maintenance, 10/02/21 10:05:00 EDT, ER Tablet, Pharmacy, Partial fill upon patient request if the prescription is for a schedule II opioid drug., 158, cm, 09/10/21 9:... Start Date: 10/02/21 Status: Ordered Problem List Condition Effective Dates Status Health Status Inform ant Cigarette smoker(Confirmed) Active Fasting hyperglycemia(Confirmed) Active History of pulmonary embolism(Confirmed) Active Hypercholesteremia ASCVD ris k 6.3% as of 09/21/17(Confirmed) Active Obese class I(Confirmed) Active Obesity(Confirmed) Active Colon polyps - 2019, 3 SSA, 1 tubular adenoma, colo due 2022(Confirmed) Active Pulmonary nodule - CT due [place] 2013(Confirmed) 1 11/19/12 Active Type II diabetes mellitus(Confirmed) Active Varicose veins(Confirmed) Active 13 mm nodule right lower lobe. [...]
--- OUTSIDE RECORDS SUMMARY | 2023-10-17 11:41 | XMS_ITS | Continuity of Care Document ---
Author Organization [facility] Address [address] [place] [address]- Care Team Providers Care Knit Goods Washer Name Role Phone Gene Sesay MD Primary Care Physician Encounter [facility] Date(s): 10/19/19 - 11/18/19 [facility] [address] [place] [address]- [facility] Allergies, Adverse Reactions, Alerts Substance Reaction Severity [...] 06/08/19 16:08:00 EST, Route to Pharmacy Electronically, [facility], 158, cm, 06/08/19 15:52:00 EST, Height, 79.2,... Start Date: 06/08/19 Status: Ordered NuLYTELY with Flavor Packs oral powder for reconstitution 240 mL, By Mouth, Every 10 minutes, # 4,000 mL, 0 Refills, Maintenance, 03/25/20 10:01:00 EDT, REC Powder, [facility] [...]
--- OUTSIDE RECORDS SUMMARY | 2023-10-17 11:41 | XMS_ITS | Continuity of Care Document ---
Author Organization [facility] Address [address] [facility] [place] [address]- Care Team Providers Care Supply Chain Specialist Name Role Phone Deion DE LA PAZ, Dain Houston Primary Care Physician Encounter 05/12/22 - 05/19/22 [facility] [address], [address] [place], [place] [address] Attending Physician: Deion DE LA PAZ, Dian Houston Admitting Physician: Deion DE LA PAZ, Dian Houston Referring Physician: Deion DE LA PAZ, Dian Houston Allergies, Adverse Reactions, Alerts Substance Reaction Severity [...] Refills, Maintenance, 10/02/21 10:05:00 EDT, ER Tablet, [facility], Partial fill upon patient request if the prescription is for a schedule II opioid drug., 158, cm, 09/10/21 9:... Start Date: 10/02/21 Status: Ordered pravastatin 20 mg oral tablet 20 mg, 1, tablet, By Mouth, Daily, replace crestor, # 30 tablet, Refills 1, Tot. Refills 1, Maintenance, 05/05/22 7:58:00 EST, Route to Pharmacy Electronically, [facility], Partial fill uponpatient request [...] CT of the chest in 12 months. Results Radiology Reports * Exam Date Time Procedure Performing Provider Status 05/12/22 12:34 PM MM Digital Mammo Screening Taylor Akins; Celina (Verified) Notes: (MM Digital Mammo Screening) Reason For Exam: routine screening RESULT: MM Digital Mammo Screening PROCEDURE: MM Digital Mammo Screening INDICATION: Screening. No known palpable abnormalities. COMPARISON: Dating back to 07/26/2018 TECHNIQUE: Full-field digital CC and MLO 3D tomosynthesis images of both breasts were acquired. Computer-aided detection (CAD) was utilized in the interpretation of this study. DENSITY: The breast tissue contains scattered areas of fibroglandular density. FINDINGS: No suspicious masses, suspicious microcalcifications, or areas of architectural distortion are seen in either breast to suggest malignancy. IMPRESSION: No mammographic evidence of malignancy. RECOMMENDATION: Annual mammographic screening BI-RADS: 1 (Negative) Lay letter mailed to patient WSN: [id number] Ordering Physician: Dian Albarran Dictated By: Cameron Atkins MD Dictated Date/Time: 05/12/22 12:53 pm Reviewed By: Cameron Atkins MD Signed By: Cameron Atkins MD Signed Date/Time: 05/12/22 12:53 pm Transcribed By: CARMEN Medical Concierge Date/Time: 05/12/22 12:52 pm Birads: Social History Social History Type Response Smoking Status Current every day sm raymond entered on: 01/24/18 Sex MG Breast Screening * BHSPowerscribe , CIS S: TRANSCRIBE Cameron Atkins MD: VERIFY Event Display: Result: Authored Date: [id number] PROCEDURE: MM Digital Mammo Screening INDICATION: Screening. No known palpable abnormalities. COMPARISON: Dating back to 07/26/2018 TECHNIQUE: Full-field digital CC and MLO 3D tomosynthesis images of both breasts were acquired. Computer-aided detection (CAD) was utilized in the interpretation of this study. DENSITY: The breast tissue contains scattered areas of fibroglandular density. FINDINGS: No suspicious masses, suspicious microcalcifications, or areas of architectural distortion are seen in either breast to suggest malignancy. IMPRESSION: No mammographic evidence of malignancy. RECOMMENDATION: Annual mammographic screening BI-RADS: 1 (Negative) Lay letter mailed to patient WSN: [id number] Ordering Physician: Dian Albarran Dictated By: Cameron Atkins MD Dictated Date/Time: 05/12/22 12:53 pm Reviewed By: Cameron Atkins MD Signed By: Cameron Atkins MD Signed Date/Time: 05/12/22 12:53 pm Transcribed By: CARMEN Medical Concierge Date/Time: 05/12/22 12:52 pm Birads: Patient Care team information Care Team Personnel Name: Dian Albarran NP Position: [facility] PC[facility] Associate Professional Member Role: PCP Address: Address: [address] [place] [address]- Care Team Related Persons Name: LUISA HNUT Address: home [address] [place] [address]
--- OUTSIDE RECORDS SUMMARY | 2023-10-17 11:41 | XMS_ITS | Continuity of Care Document ---
Author Organization [facility] Zaid Agustin Address [address] [place] [address]- Care Team Providers Care Gut Dropper Name Role Phone Lázaro VILLARREAL, Gene Hi Primary Care Physician Encounter [facility] Date(s): 06/08/19 - 06/15/19 [facility] Adult [address] [place] [address]- [facility] Encounter Diagnosis Right elbow pain(Discharge Diagnosis) - 06/08/19 Attending Physician: Gavin DE LA PAZ, Sanjuanita Allergies, Adverse Reactions, Alerts Substance Reaction Severity [...] 16:08:00 EST, Route to Pharmacy Electronically, [facility], 158, cm, 06/08/19 15:52:00 EST, [...] Health Status Cl inical Service Informant Right elbow pain Discharge Diagnosis 06/08/19 Vital Signs Most recent to oldest [Reference Range]: 1 Height 158 cm (06/08/19 3:52 PM) Weight 80.7 kg (06/08/19 3:52 PM) Oxygen Saturation [94-100 %] 98 % (06/08/19 3:52 PM) Pulse Rate [55-90 bpm] 80 bpm (06/08/19 3:52 PM) Body Mass Index [18.5-24.99] 32.33 *>HHI* (06/08/19 3:52 PM) Blood Pressure [90-138/55-84 mm Hg] 124/ 66mm Hg (06/08/19 3:52 PM) Respiratory Rate [16-30 br/min] 16 br/mi n (06/08/19 3:52 PM) Temperature [96.8-100.4 DegF] 97.8 DegF (06/08/19 3:52 PM) Mode of Delivery (Oxygen) Room air (06/08/19 3:52 PM) Blood pressure sites Arm, left (06/08/19 3:52 PM) Temperature Route Oral (06/08/19 3:52 PM) Weight Obtained Via Standing scale (06/08/19 3:52 PM) Social History Social History Type Response Smoking Status Current every day lloyd andrade entered on: 01/24/18 Sex
--- OUTSIDE RECORDS SUMMARY | 2023-10-17 11:41 | XMS_ITS | Continuity of Care Document ---
Author Organization [facility] Zaid Agustin lt Address [address] [place] [address]- Care Team Providers Care Personnel Security Assistant Name Role Phone Deion DE LA PAZ, Dian Houston Primary Care Physician [phone] [facility] Date(s): 10/28/21 - 11/04/21 [facility] Adult [address] [place] [address]- Encounter Diagnosis Type II diabetes mellitus(Discharge Diagnosis) - 10/28/21 Hypercholesteremia(Discharge Diagnosis) - 10/28/21 Attending Physician: Deion DE LA PAZ, Dian [...] tablet, 2 Refills, Maintenance, 10/02/21 10:05:00 EDT, [facility], Partial fill upon patient request if the prescriptionis for a schedule II opioid drug., 158, cm, ... Start Date: 10/02/21 Status: Ordered metFORMIN 500 mg oral tablet, extended release 1 tablet = 500 mg, By Mouth, Daily, # 90 tablet, 3 Refills, Maintenance, 10/02/21 10:05:00 EDT, ER Tablet, [facility], Partial fill upon patient request if the prescription is for a schedule II opioid drug., 158, cm, 09/10/21 9:... Start Date: 10/02/21 Status: Ordered Problem List Condition Effective Dates Status Health Status Inform ant Cigarette smoker(Confirmed) Active History of pulmonary embolism(Confirmed) Active Hypercholesteremia [...] Effective Dates Health Status Clinical Service Informant Hypercholesteremia Discharge Diagnosis 10/28/21 Non-Specified Type II diabetes mellitus Discharge Diagnosis 10/28/21 Vital Signs Most recent to oldest [Reference Range]: 1 Height 158 cm (10/28/21 10:25 AM) Weight 81.8 kg (10/28/21 10:25 AM) Oxygen Saturation [94-100 %] 97 % (10/28/21 10:25 AM) Pulse Rate [55-90 bpm] 82 bpm (10/28/21 10:25 AM) Body Mass Index [18.5-24.99] 32.77 *>HHI* (10/28/21 10:25 AM) Blood Pressure [90-138/55-84 mm Hg] 111/ 73mm Hg (10/28/21 10:25 AM) Temperature [96.8-100.4 DegF] 96.8 DegF (10/28/21 10:25 AM) Blood pressure sites Arm, left (10/28/21 10:25 AM) Temperature Route Temporal (10/28/21 10:25 AM) Weight Obtained Via Standing scale (10/28/21 10:25 AM) Social History Social History Type Response Smoking Status Current every day lloyd andrade entered on: 01/24/18 Sex
--- OUTSIDE RECORDS SUMMARY | 2023-10-17 11:41 | XMS_ITS | Continuity of Care Document ---
Author Organization [facility] Zaid Agustin lt Address [address] [place] [address]- Care Team Providers Care Taxicab Driver Name Role Phone Gene Sesay MD Primary Care Physician [phone] Encounter [facility] Date(s): 12/19/20 - 12/26/20 [facility] Adult [address] [place] [address]- Encounter Diagnosis RUQ abdominal pain(Discharge Diagnosis) - 12/19/20 Attending Physician: Not on Staff, Attending MD Referring Physician: Gene Sesay MD Allergies, Adverse Reactions, [...] 0, Tot. Refills 0, Maintenance, for pain, 07/18/20 15:46:00 EDT, Route to Pharmacy Electronically, [facility], 158, cm, 07/18/20 8:16:00 EDT, Height, 81.2,... Start Date: 07/18/20 Status: Ordered Tennis elbow strap Tennis elbow [...] Dates Health Status Cl inical Service Informant RUQ abdominal pain Discharge Diagnosis 12/19/20 Vital Signs Most recent to oldest [Reference Range]: 1 Height 158 cm (12/19/20 7:07 AM) Weight 82.4 kg (12/19/20 7:07 AM) Oxygen Saturation [94-100 %] 99 % (12/19/20 7:07 AM) Pulse Rate [55-90 bpm] 89 bpm (12/19/20 7:07 AM) Body Mass Index [18.5-24.99] 33.01 *>HHI* (12/19/20 7:07 AM) Blood Pressure [90-138/55-84 mm Hg] 119/ 77mm Hg (12/19/20 7:07 AM) Temperature [96.8-100.4 DegF] 97.5 DegF (12/19/20 7:07 AM) Blood pressure sites Arm, right (12/19/20 7:07 AM) Temperature Route Oral (12/19/20 7:07 AM) Weight Obtained Via Standing scale (12/19/20 7:07 AM) Social History Social History Type Response Smoking Status Current every day lloyd andrade entered on: 01/24/18 Sex
--- OUTSIDE RECORDS SUMMARY | 2023-10-17 11:41 | XMS_ITS | Continuity of Care Document ---
Author Organization [facility] Address [address] [place] [address]- Care Team Providers Care Lithographer Helper Name Role Phone Deion DE LA PAZ, Dian Houston Primary Care Physician [phone] Encounter [facility] Date(s): 11/30/22 - 12/30/[address] [address] Attending Physician: AdmSamara pat Admitting Physician: AdmtrSamara Referring Physician: Admtr, Ar8 Allergies, Adverse Reactions, Alerts [...] Refills, Maintenance, 08/14/22 18:05:00 EDT, ER Tablet, [facility] Partial fill upon patient request [...] mL, 0 Refills, Maintenance, 11/14/22 17:00:00 EDT, [facility], test date, split prep method. drink... Start Date: 11/14/22 Status: Ordered pravastatin 20 mg oral tablet 20 mg, 1, tablet, By Mouth, Daily, replace crestor, # 30 tablet, Refills 1, Tot. Refills 1, Maintenance, 05/05/22 7:58:00 EST, Route to Pharmacy Electronically, [facility], Partial fill uponpatient request [...] Associate Professional Member Role: PCP Address: Address: [address] [place] [address]- Care Team Related Persons Name: MARILEE LUISA Address: home [address] [place] [address]
--- OUTSIDE RECORDS SUMMARY | 2023-10-17 11:42 | XMS_ITS | Continuity of Care Document ---
Author Organization [facility] Agustin lt Address [address] [place] [address]- Care Team Providers Care Home Performance Consultant Name Role Phone Gene Sesay MD Primary Care Physician [phone] Encounter [facility] Date(s): 12/18/20 - 01/18/21 [facility] Adult [address] [place] [address]- Attending Physician: Not on Staff, Attending Referring Physician: Gene Sesay MD Allergies, Adverse [...] mL, 0 Refills, Maintenance, 01/08/21 13:22:00 EDT, [facility], Partial fill [...]
--- OUTSIDE RECORDS SUMMARY | 2023-10-17 11:42 | XMS_ITS | Continuity of Care Document ---
Author Organization [facility] Zaid Agustin lt Address [address] [place] [address]- Care Team Providers Care Volleyball Referee Name Role Phone Deion DE LA PAZ, Dian Houston Primary Care Physician [phone] Encounter [facility] Date(s): 05/11/23 - 06/10/23 [facility] Adult [address] [place] [address]- Allergies, Adverse Reactions, Alerts Substance Reaction Severity [...] 05/05/22 7:58:00 EST, Route to Pharmacy Electronically, [facility], Partial fill uponpatient request [...] Team Personnel Name: Dian Albarran NP Position: [facility] Associate Professional Member Role: PCP Address: Address: [address] [place] [address]- Care Team Related Persons Name: LUISA HUNT Address: home [address] [place] [address]
--- OUTSIDE RECORDS SUMMARY | 2023-10-17 11:42 | XMS_ITS | Continuity of Care Document ---
Author Organization [facility] Zaid Agustin lt Address [address] [place] [address]- Care Team Providers Care Body Straightener Name Role Phone Gene Sesay MD Primary Care Physician Encounter [facility] Date(s): 12/27/19 - 01/26/20 [facility] Adult [address] [place] [address]- [facility] Attending Physician: Admtr, Ar8 Allergies, Adverse Reactions, [...] 12/27/19 15:17:00 EDT, Route to Pharmacy Electronically, [facility], 158, cm, 12/27/19 13:56:00 EDT, [...]
--- OUTSIDE RECORDS SUMMARY | 2023-10-17 11:42 | XMS_ITS | Continuity of Care Document ---
Author Organization [facility] Zaid Agustin lt Address [address] [place] [address]- Care Team Providers Care Staffing Clerk Name Role Phone Deion DE LA PAZ, Dian Houston Primary Care Physician [phone] Encounter [facility] Date(s): 05/09/23 - 05/16/23 [facility] Adult [address] [place] [address]- Encounter Diagnosis Severe obesity (BMI 35.0-39.9) with comorbidity(Discharge Diagnosis) - 05/09/23 Type II diabetes mellitus(Discharge Diagnosis) - 05/09/23 Hypercholesteremia ASCVD risk 6.3% as of 09/21/17(Discharge Diagnosis) - 05/09/23 Attending Physician: Dian Albarran NP Referring Physician: Leila VILLARREAL, Álvaro Francis Allergies, Adverse Reactions, Alerts Substance Reaction Severity [...] 05/05/22 7:58:00 EST, Route to Pharmacy Electronically, [facility], Partial fill uponpatient request [...] Effective Dates Health Status Clinical Service Informant Severe obesity (BMI 35.0-39.9) with comorbidity Discharge Diagnosis 05/09/23 Type II diabetes mellitus Discharge Diagnosis 05/09/23 Hypercholesteremia ASCVD risk 6.3% as of 09/21/17 Discharge Diagnosis 05/09/23 Vital Signs Most recent to oldest [Reference Range]: 1 Height 154.9 cm (05/09/23 9:03 AM) Weight 84.3 kg (05/09/23 9:03 AM) Oxygen Saturation [94-100 %] 96 % (05/09/23 9:03 AM) Pulse Rate [55-90 bpm] 75 bpm (05/09/23 9:03 AM) Body Mass Index [18.5-24.99 kg/m2] 35.13 kg/m2 *>HHI* (05/09/23 9:03 AM) Blood Pressure [90-138/55-84 mm Hg] 126/ 76mm Hg (05/09/23 9:03 AM) Mode of Delivery (Oxygen) Room air (05/09/23 9:03 AM) Blood pressure sites Arm, right (05/09/23 9:03 AM) Weight Obtained Via Standing scale (05/09/23 9:03 AM) Social History Social History Type Response Smoking Status Current every day lloyd raymond entered on: 01/24/18 Sex Note * Latrice Good: PERFORM, SIGN, VERIFY Event Display: Patient Education/Instruction Authored Date: [id number] [facility] *[facility] Clinical Summary Name LUIS HUNT Age 63 Years 1960 PCP Dian Albarran NP PCP Visit Date 05/09/2023 08:41:00 Additional Instructions: Scheduled Appointments?? Future Appointments ?No Future Appointments Scheduled Follow-Up Instructions ?? With: Address: When: Deion DE LA PAZ, Dian Houston [address] [facility] Medicine [place], [place] [id number] In 6 months Comments: cpe Diagnosis Morbid (severe) obesity due to excess calories; Type 2 diabetes mellitus without complications; Pure hypercholesterolemia, unspecified Medications: Please continue your medications until treatment is completed or stopped by your provider. Discuss any questions related to medications with your provider. New Medications [facility], [address] [place], [place] [id number], [phone] semaglutide (Ozempic 2 mg/1.5 mL (0.25 mg or 0.5 mg dose) subcutaneous solution) 0.25 Milligram Subcutaneous Injection every week. rotate injection sites dx: Type II diabetes. Refills: 0. Next Dose: Medications to Continue with No Changes These medications were not printed or sent to your pharmacy Pravastatin (pravastatin 20 mg oral tablet) 1 tab(s) Oral Daily. replace crestor. Refills: 1. Next Dose: No Longer Take the Following Medications Metformin (MetFORMIN (Eqv-Glucophage XR) 500 mg oral tablet, extended release) 1 tab(s) Oral Daily.Refills: 1. PEG Electrolyte Solution (NuLYTELY with Flavor Packs oral powder for reconstitution) split prep method. drink one half the night before procedure at 5pm. drink second half six hours prior to procedure.. Refills: 0. Allergy Info:?? Vicodin Medications Given This Visit Future Orders ?No future orders Vital Signs Height 154.9 cm Weight 84.3 kg BMI 35.13 kg/m2 Blood Pressure 126 mm Hg/76 mm Hg Temperature Pulse Rate 75 bpm Respiratory Rate 02 Sat Mode of Delivery 96 %/Room air You can now view a summary of your hospital visit from the comfort of your home through a free online portal called [employer]. [employer] is a website that allows you to securely view your medical information including discharge summary, medications and follow-up visits. ??You can alsosend a secure electronic message to your doctor???s office to request appointments, renew medications or just ask a question. You can enroll at [email or web address] or register during your next office visit. [...] primary care provider, you may find a [facility] provider by calling [facility] Link at [phone]. [facility], in keeping with [facility] guidance, no longer requires face masks for staff, patientsor visitors in most situations. Similar to time spent indoors at other locations, there is the chance that you were exposed to respiratory viruses during your time with us (such as flu or COVID-19).? If you develop symptoms concerning for a viral respiratory infection, please seek testing (and treatment if indicated) from your medical provider or home test kit. For information about the plan of care [...] Deion DE LA PAZ, Dian Houston Position: [facility] Associate Professional Member Role: PCP Address: Address: [address] [place] [address]- Care Team Related Persons Name: LUISA HUNT Address: home [address] [place] [address]
--- OUTSIDE RECORDS SUMMARY | 2023-10-17 11:42 | XMS_ITS | Continuity of Care Document ---
Author Organization [facility] Zaid Agustin lt Address [address] [place] [address]- Care Team Providers Care Echo Technician Name Role Phone Deion DE LA PAZ, Dian Houston Primary Care Physician [phone] Encounter [facility] Date(s): 05/06/22 - 06/05/22 [facility] Adult [address] [place] [address]- Allergies, Adverse Reactions, Alerts Substance Reaction Severity [...] Refills, Maintenance, 10/02/21 10:05:00 EDT, ER Tablet, [facility], Partial fill upon patient request if the prescription is for a schedule II opioid drug., 158, cm, 09/10/21 9:... Start Date: 10/02/21 Status: Ordered NuLYTELY with Flavor Packs oral powder for reconstitution See Instructions, split prep method. drink one half the night before procedure at 5pm. drink secondhalf six hours prior to procedure., # 4,000 mL, 0 Refills, Maintenance, 11/14/22 17:00:00 EDT, [facility], test date, split [...] Deion DE LA PAZ, Dian Houston Position: [facility] PCO Associate Professional Member Role: PCP Address: Address: [address] [place] [address]- Care Team Related Persons Name: HUNTRAMSESS Address: home [address] [place] [address]
--- OUTSIDE RECORDS SUMMARY | 2023-10-17 11:42 | XMS_ITS | Continuity of Care Document ---
Author Organization [facility] Address [address] [place] [address]- Care Team Providers Care Billing Assistant Name Role Phone Deion DE LA PAZ, Dian Houston Primary Care Physician [phone] [place] [facility] [place]/23 [facility] [address] [place] [id number] Allergies, Adverse Reactions, Alerts Substance Reaction Severity [...] WEEK. ROTATE INJECTION SITES, # 3 mL, 2 Refills, Maintenance, 08/11/23 8:25:00 EDT, [facility], 154.9, cm, 05/09/23 9:03:00 EST, Height, 81.1, kg, 11/15/22 9:33:00 EDT, Dry Weight Start Date: 08/11/23 Status: Ordered pravastatin 20 mg oral tablet 20 mg, 1, tablet, By Mouth, Daily, replace crestor, # 30 tablet, Refills 1, Tot. Refills 1, Maintenance, 05/05/22 7:58:00 EST, Route to Pharmacy Electronically, [facility] # [facility], Partial fill uponpatient request [...] Associate Professional Member Role: PCP Address: Address: [address] [place] [address]- Care Team Related Persons Name: LUISA HUNT Address: home [address] [place] [address]
--- OUTSIDE RECORDS SUMMARY | 2023-10-17 11:42 | XMS_ITS | Continuity of Care Document ---
Author Organization [facility] Dewey Mar Agustin lt Address [address] [place] [address]- Care Team Providers Care Car Tester Name Role Phone Deion DE LA PAZ, Dian Houston Primary Care Physician [phone] [place] [facility] [place] 07[place]29/21 - 08/05/21 [facility] Adult [address] [place] [address]- Encounter Diagnosis Annual physical exam(Discharge Diagnosis) - 07/29/21 Hypercholesteremia ASCVD risk 6.3% as of 09/21/17(Discharge Diagnosis) - 07/29/21 Cigarette smoker(Discharge Diagnosis) - 07/29/21 Pulmonary embolism(Discharge Diagnosis) - 07/29/21 Attending Physician: Dian Albarran NP Referring Physician: [...] By Mouth, Daily, take at bedtime, # 30 tablet, 2 Refills, Maintenance, 07/31/21 14:11:00 EDT, [facility], Partial fill upon patient request if the prescription is for a schedule II opioid drug., 158, cm, 07/29/21 8:42:00 EDT,... Start Date: 07/31/21 Status: Ordered metFORMIN 500 mg oral tablet, extended release 1 tablet = 500 mg, By Mouth, Daily, # 30 tablet, 3 Refills, Maintenance, 07/31/21 14:08:00 EDT, ER Tablet, [facility], Partial fill upon patient request if the prescription is for a scheduleII opioid drug., 158, cm, 07/29/21 8:42:00 EDT, [facility]... Start Date: 07/31/21 Status: Ordered nicotine 14 mg/24 hr transdermal film, extended release 1 patch, Topically, Daily, for 6 week(s), # 42 patch, 0 Refills, Acute 09/09/21 9:15:00 EDT, 07/29/21 9:15:00 EDT, [facility], Partial fill upon patient request if the prescription is for a schedule II opioid drug., 1 patch Topically Daily,x6... Start Date: 07/29/21 Stop Date: 09/09/21 Status: Ordered Nicotine 7 mg/24 hour patch 1 patch, Topically, Daily, for 4 week(s), start after completing the 15mg patches, # 28 patch, 0 Refills, Acute 08/26/21 9:16:00 EDT, 07/29/21 9:16:00 EDT, [facility] # [facility], Partial fill upon patient request if the prescription is for a schedule II... Start Date: 07/29/21 Stop Date: 08/26/21 Status: Ordered Problem List Condition Effective Dates Status Health Status Inform ant Cigarette smoker(Confirmed) Active Fasting hyperglycemia(Confirmed) Active History of pulmonary embolism(Confirmed) Active Hypercholesteremia ASCVD ris k 6.3% as of 09/21/17(Confirmed) Active Obesity(Confirmed) Active Colon polyps - 2019, 3 SSA, 1 tubular adenoma, colo due 2022(Confirmed) Active Pulmonary nodule - CT due [place] 2014(Confirmed) 1 11/19/12 Active Type II diabetes mellitus(Confirmed) [...] Service Informant Annual physical exam Discharge Diagnosis 07/29/21 Hypercholesteremia ASCVD risk 6.3% as of 09/21/17 Discharge Diagnosis 07/29/21 Cigarette smoker Discharge Diagnosis 07/29/21 Pulmonary embolism Discharge Diagnosis 07/29/21 Vital Signs Most recent to oldest [Reference Range]: 1 Height 158 cm (07/29/21 8:42 AM) Weight 82.2 kg (07/29/21 8:42 AM) Oxygen Saturation [94-100 %] 100 % (07/29/21 8:42 AM) Pulse Rate [55-90 bpm] 81 bpm (07/29/21 8:42 AM) Body Mass Index [18.5-24.99] 32.93 *>HHI* (07/29/21 8:42 AM) Blood Pressure [90-138/55-84 mm Hg] 112/ 77mm Hg (07/29/21 8:42 AM) Temperature [96.8-100.4 DegF] 97.7 DegF (07/29/21 8:42 AM) Blood pressure sites Arm, left (07/29/21 8:42 AM) Temperature Route Temporal (07/29/21 8:42 AM) Weight Obtained Via Standing scale (07/29/21 8:42 AM) Social History Social History Type Response Smoking Status Current every day lloyd andrade entered on: 01/24/18 Sex
--- OUTSIDE RECORDS SUMMARY | 2023-10-17 11:42 | XMS_ITS | Continuity of Care Document ---
Author Organization [facility] Zaid Agustin lt Address [address] [place] [address]- Care Team Providers Care Diaper Folder Name Role Phone Deion DE LA PAZ, Dian Houston Primary Care Physician [place] [facility] [place] 09[place]17/21 [facility] Adult [address] [place] [address]- Attending Physician: Álvaro Dee MD Allergies, Adverse Reactions, [...] tablet, 2 Refills, Maintenance, 07/31/21 14:11:00 EDT, [facility], Partial fill upon patient request if the prescription is for a schedule II opioid drug., 158, cm, 07/29/21 8:42:00 EDT,... Start Date: 07/31/21 Status: Ordered metFORMIN 500 mg oral tablet, extended release 1 tablet = 500 mg, By Mouth, Daily, # 30 tablet, 3 Refills, Maintenance, 07/31/21 14:08:00 EDT, ER Tablet, [facility], Partial fill upon patient request if the prescription is for a scheduleII opioid drug., 158, cm, 07/29/21 8:42:00 EDT, Hei... Start Date: 07/31/21 Status: Ordered Problem List Condition Effective Dates [...] oldest [Reference Range]: 1 Height 158 cm (09/10/21 9:31 AM) Weight 82.2 kg (09/10/21 9:31 AM) Oxygen Saturation [94-100 %] 98 % (09/10/21 9:31 AM) Pulse Rate [55-90 bpm] 72 bpm (09/10/21 9:31 AM) Body Mass Index [18.5-24.99] 32.93 *>HHI* (09/10/21 9:31 AM) Blood Pressure [90-138/55-84 mm Hg] 112/ 78mm Hg (09/10/21 9:31 AM) Temperature [96.8-100.4 DegF] 98.2 DegF (09/10/21 9:31 AM) Mode of Delivery (Oxygen) Room air (09/10/21 9:31 AM) Blood pressure sites Arm, left (09/10/21 9:31 AM) Temperature Route Oral (09/10/21 9:31 AM) Weight Obtained Via Standing scale (09/10/21 9:31 AM) Social History Social History Type Response Smoking Status Current every day lloyd andrade entered on: 01/24/18 Sex
--- OUTSIDE RECORDS SUMMARY | 2023-10-17 11:42 | XMS_ITS | Continuity of Care Document ---
Author Organization [facility] Zaid Agustin lt Address [address] [place] [address]- Care Team Providers Care Test Puller Name Role Phone Deion DE LA PAZ, Dian Houston Primary Care Physician [phone] [place] [facility] [place] 09/15/21 - 10/15/21 [facility] Adult [address] [place] [address]- Allergies, Adverse Reactions, Alerts Substance Reaction Severity [...] tablet, 2 Refills, Maintenance, 10/02/21 10:05:00 EDT, [facility], Partial fill upon patient request if the prescriptionis for a schedule II opioid drug., 158, cm, ... Start Date: 10/02/21 Status: Ordered metFORMIN 500 mg oral tablet, extended release 1 tablet = 500 mg, By Mouth, Daily, # 90 tablet, 3 Refills, Maintenance, 10/02/21 10:05:00 EDT, ER Tablet, [facility], Partial fill upon patient request [...]
--- OUTSIDE RECORDS SUMMARY | 2023-10-17 11:42 | XMS_ITS | Continuity of Care Document ---
Author Organization [facility] Agust[facility] lt Address [address] [place] [address]- Care Team Providers Care Dietetics Teacher Name Role Phone Deion DE LA PAZ, Dian Houston Primary Care Physician [phone] [place] [facility] [place] 08/14/22 - 09/13/22 [facility] Adult [address] [place] [address]- Allergies, Adverse Reactions, Alerts Substance Reaction Severity [...] Refills, Maintenance, 08/14/22 18:05:00 EDT, [facility] Partial fill upon patient request [...] mL, 0 Refills, Maintenance, 11/14/22 17:00:00 EDT, [facility] # [facility], test date, split prep method. drink... Start Date: 11/14/22 Status: Ordered pravastatin 20 mg oral tablet 20 mg, 1, tablet, By Mouth, Daily, replace crestor, # 30 tablet, Refills 1, Tot. Refills 1, Maintenance, 05/05/22 7:58:00 EST, Route to Pharmacy Electronically, [facility] # [facility], Partial fill uponpatient request [...] Associate Professional Member Role: PCP Address: Address: [address] [place] [address] [place] [address]- Care Team Related Persons Name: LUISA HUNT Address: home [address] [place] [address]
--- OUTSIDE RECORDS SUMMARY | 2023-10-17 11:42 | XMS_ITS | Continuity of Care Document ---
Author Organization [facility] Zaid Agustin lt Address [address] [place] [address]- Care Team Providers Care Unix Developer Name Role Phone Gene Sesay MD Primary Care Physician [place] [facility] [place]19 [facility] Adult [address] [place] [address]- [facility] Attending Physician: Admtr, Ar8 Allergies, Adverse Reactions, [...] 06/08/19 16:08:00 EST, Route to Pharmacy Electronically, [facility], 158, cm, 06/08/19 15:52:00 EST, [...]
--- OUTSIDE RECORDS SUMMARY | 2023-10-17 11:42 | XMS_ITS | Continuity of Care Document ---
Author Organization [facility] Zaid Agustin lt Address [address] [place] [address]- Care Team Providers Care Paving Contractor Name Role Phone Lázaro VILLARREAL, Gene Hi Primary Care Physician Encounter [facility] Date(s): 02/03/21 - 03/05/21 [facility] Adult [address] [place] [address]- Allergies, Adverse Reactions, Alerts Substance Reaction Severity [...] mL, 0 Refills, Maintenance, 01/08/21 13:22:00 EDT, [facility] # [facility], Partial fill upon [...]
--- OUTSIDE RECORDS SUMMARY | 2023-10-17 11:42 | XMS_ITS | Continuity of Care Document ---
Author Organization [facility] Address [address] [place] [address]- Care Team Providers Care Fuel Agent Name Role Phone Gene Sesay MD Primary Care Physician [phone] [place] [facility] [place](s): 10/23/19 - 11/22/19 [facility] [address] [place] [address]- [facility] Allergies, Adverse Reactions, Alerts Substance [...] 06/08/19 16:08:00 EST, Route to Pharmacy Electronically, [facility], 158, cm, 06/08/19 15:52:00 EST, [...]
--- OUTSIDE RECORDS SUMMARY | 2023-10-17 11:42 | XMS_ITS | Continuity of Care Document ---
Author Organization [facility] [place] [address] [place] [address]- Care Team Providers Care Purse Framer Name Role Phone Deion DE LA PAZ, Dian Houston Primary Care Physician Encounter 07/01/23 - 07/08/23 [facility] [place] [address] [place], [place] [address] Attending Physician: Deion DE LA PAZ, Dian [...] Exam Date Time Procedure Performing Provider Status 07/01/23 11:14 AM MM Digital Mammo Screening Tiffany Valderrama; Auth (Verified) Notes: (MM Digital Mammo Screening) Reason For Exam: Z12.31 SCRENING RESULT: MM Digital Mammo Screening PROCEDURE: MM Digital Mammo Screening INDICATION: Screening for breast cancer. No known palpable abnormalities. Benign excisional biopsy in both breasts in 1974. Reduction surgery in 2006. COMPARISON: Multiple priors, the most recent 05/12/2022 TECHNIQUE: Full-field digital CC and MLO 3D tomosynthesis images of both breasts were acquired. Computer-aided detection (CAD) was utilized in the interpretation of this study. DENSITY: The breast tissue contains scattered areas of fibroglandular density. FINDINGS: No suspicious masses, suspicious microcalcifications, or areas of architectural distortion are seen in either breast to suggest malignancy. IMPRESSION: No mammographic evidence of malignancy. RECOMMENDATION: Routine mammographic screening BI-RADS: 1 (Negative) Lay letter mailed to patient WSN: [id number] Ordering Physician: Dian Albarran Dictated By: Frederick Rincon MD Dictated Date/Time: 07/01/23 2:02 pm Reviewed By: Frederick Rincon MD Signed By: Frederick Rincon MD Signed Date/Time: 07/01/23 2:02 pm Transcribed By: CARMEN Mosaic Tiler Date/Time: 07/01/23 1:58 pm Birads: Social History Social History Type Response Smoking Status Current every day raymond entered on: 01/24/18 Sex Patient Care team information Care Team Personnel Name: Deion DE LA PAZ, Dian [place] Position: [facility]O Associate Professional Member Role: PCP Address: Address: [address] [place] [address]- Care Team Related Persons Name: LUISA HUNT Address: home [address] [place] [address]
--- OUTSIDE RECORDS SUMMARY | 2023-10-17 11:42 | XMS_ITS | Continuity of Care Document ---
Author Organization [facility] Zaid Agustin lt Address [address] [place] [address]- Care Team Providers Care Bagman/Woman Name Role Phone Gene Sesay MD Primary Care Physician [place] [facility] [place] 07/11/19 - 08/10/19 [facility] Adult [address] [place] [address]- [facility] Attending Physician: Gene Sesay MD Allergies, Adverse [...] 06/08/19 16:08:00 EST, Route to Pharmacy Electronically, [facility], 158, cm, 06/08/19 15:52:00 EST, [...]
--- OUTSIDE RECORDS SUMMARY | 2023-10-17 11:42 | XMS_ITS | Continuity of Care Document ---
Author Organization [facility] Zaid Agustin lt Address [address] [place] [address]- Care Team Providers Care Sales Operations Analyst Name Role Phone Deion DE LA PAZ, Dian Houston Primary Care Physician [place] [facility] [place] 08/11/23 - 09/10/23 [facility] Adult [address] [place] [address]- Allergies, Adverse Reactions, Alerts Substance Reaction Severity [...] Associate Professional Member Role: PCP Address: Address: [address] [place] [address]- Care Team Related Persons Name: LUISA HUNT Address: home [address] [place] [address]
[2023-10-17] MEDS: oxyCODONE HCl Immed Release 5 MG TABLET PO (12:34)
[2023-10-17 13:25] VITALS: BP 162/76; PULSE 60; RESP 18; TEMP 36.7; O2SAT 98
[2023-10-17 13:34] VITALS: BP 162/76; PULSE 60; RESP 18; TEMP 36.7; O2SAT 98
== END 2023-10-17 13:38 | disposition home or self-care (01) ==
PROVIDERS: Emergency Provider Emergency Medicine
DX: S83.92XA Sprain of unspecified site of left knee, initial encounter (principal); M25.562 Pain in left knee; Y33.XXXA Other specified events, undetermined intent, initial encounter; Y93.9 Activity, unspecified; Y92.9 Unspecified place or not applicable; Y99.8 Other external cause status
CPT/HCPCS: 73562; 99283; 99284